=== PATIENT | female | born 1980 | race Two or more races ===

== ENCOUNTER 2021-01-02 15:30 | Emergency (ER) | payer OTHER ==
[~2021-01-02] VITALS: Ht 160 cm; Wt 59.0 kg
[2021-01-02] MEDS ORDERED: NURTEC ODT75 MG (15:50)
[2021-01-02] MEDS ORDERED: RELAFEN DS1000 MG (15:50)
[2021-01-02] MEDS ORDERED: OMEPRAZOLE MAGN20 MG (15:50)
[2021-01-02] MEDS ORDERED: CITALOPRAM20 MG/10 M (15:51)
== END 2021-01-02 17:03 | disposition home or self-care (01) ==
LOC: ER 15:30
DX: H57.13 Ocular pain, bilateral (principal); G43.809 Other migraine, not intractable, without status migrainosus; R11.11 Vomiting without nausea